=== PATIENT | female | born 1950 | race Caucasian/White ===

== ENCOUNTER → 2019-01-23 | Outpatient (CLI) | payer BC, MEDICARE ==
[~2019-01-23] MED LIST: ACETAMINOPHEN325 M1 PO; ALDACTONE50 MG PO; ASPIRIN EC325 M1 PO; BENADRYL PO; BENADRYL25 MG PO; BISOPROLOL FUMAR5 MG PO; CLARITIN10 MG PO; COLACE 100 MG100 MG PO; DILAUDID 2 MG TA2 MG PO; LIVALO2 MG PO; METAMUCIL1 EAC1 PO; MOM PO; ORACEA40 MG PO; RESTORIL30 MG PO; XARELTO10 M1 PO; ZANAFLEX4 M1 PO
== END ==
LOC: M.MRI 14:15
DX: S83.281A Other tear of lateral meniscus, current injury, right knee, initial encounter (principal); M17.11 Unilateral primary osteoarthritis, right knee; M25.461 Effusion, right knee; M71.21 Synovial cyst of popliteal space [Baker], right knee; X58.XXXA Exposure to other specified factors, initial encounter; Y93.89 Activity, other specified; Y92.89 Other specified places as the place of occurrence of the external cause; Y99.8 Other external cause status

== ENCOUNTER 2019-03-09 06:55 | Inpatient (IN) | payer BC, MEDICARE ==
[2019-02-26 09:09] LABS: ABSOLUTE BASOPHILS 0.1 thou/uL (0.0-0.2); ABSOLUTE EOSINOPHILS 0.2 thou/uL (0.0-0.7); ABSOLUTE LYMPHOCYTES 1.6 thou/uL (0.8-5.3); ABSOLUTE MONOCYTES 1.2 thou/uL (0.0-1.2); ABSOLUTE NEUTROPHILS 5.9 thou/uL (1.6-8.1); BASOPHILS 0.8 %; EOSINOPHILS 1.8 %; HEMATOCRIT 42.1 % (37.0-47.0); HEMOGLOBIN 14.4 gm/dL (12.0-15.0); LYMPHOCYTES 18.3 %; MCH 33.7 pg (26.0-34.0); MCHC 34.2 g/dL (28.0-37.0); MCV 98.5 fL (80.0-100.0); MONOCYTES 12.9 %; MPV 8.5 fl. (7.2-11.1); NUCLEATED RBCS 0 /100WBC; PLATELET COUNT* 253 thou/uL (150-400); POLYS 66.2 %; RBC 4.27 mil/uL (4.20-5.00); RDW-CV 12.7 % (10.5-14.5); WBC 8.9 thou/uL (4.0-11.0)
[2019-02-26 09:17] LABS: APTT 25.6 Seconds (25.0-31.3); PROTIME 10.4 Seconds (9.20-11.50)
[2019-02-26 09:23] LABS: ALBUMIN 4.2 g/dL (3.4-5.0); CALCIUM 9.3 mg/dL (8.5-10.1); CREATININE 1.2 mg/dL (0.6-1.3); POTASSIUM 4.8 mmol/L (3.5-5.1); TOTAL BILIRUBIN 0.4 mg/dL (<0.1-1.0); TOTAL PROTEIN 7.7 g/dL (6.4-8.2)
[2019-02-26 10:34] LABS: ESR (SEDRATE) 10 mm/hr (0-30)
--- NOTE | 2019-02-26 13:35 | EKG ---
[place] [address] ELECTROCARDIOGRAM REPORT Name: GOKUL VALDEZ Room: PRE IN [facility]#: [id number] Admission: Attend Phys: Faustino Mckee DO Discharge: Date of : 52 Report #: [id number] THIS REPORT FOR: //name// [facility] Test Date: 2019-02-26 Test Time: 09:21:20 Pat Name: GOKUL VALDEZ Department: Room: Gender: F Distance Education Director: : 1950 Requested By: Faustino Mckee Order Number: [id number] Reading MD: Juan C Avalos Measurements Intervals [place] Rate: 71 P: 63 NM: 187 QRS: 9 QRSD: 98 T: 53 QT: 368 QTc: 400 Interpretive Statements Sinus rhythm Compared to ECG 09/28/2013 10:39:51 ST (T wave) deviation no longer present Electronically Signed On 02-26-2019 13:35:04 CDT by Juan C Avalos [email or web address] <ELECTRONICALLY SIGNED> By: Juan C Avalos MD, [facility] 02/26/19 1335 0921 0 Juan C Avalos MD, FACC /EPI
[~2019-03-09] VITALS: Ht 165.1 cm; Wt 66.2 kg
[~2019-03-09 06:55] MED LIST changes: +CALCIUM 500 MG1 EAC2 PO; +ENBREL25 MG/0.5 SUBQ; +FOLIC ACID1 MG PO; +FOSAMAX 70 MG T70 MG PO; +HYDROXYCHLOROQ200 M1 PO; +IRON325 PO; +OTREXUP SUBQ; +PREDNISONE 1 MG1 M1 PO
[2019-03-09 11:20] VITALS: BP 124/67
[2019-03-09 16:30] VITALS: BP 125/52
[2019-03-09 20:30] VITALS: BP 132/54
[2019-03-10] VITALS (7 sets, daily range): BP systolic 91–126; BP diastolic 44–64
[2019-03-10 05:38] LABS: CALCIUM 8.4 mg/dL (8.5-10.1); CREATININE 1.2 mg/dL (0.6-1.3); POTASSIUM 4.8 mmol/L (3.5-5.1)
[2019-03-10 05:42] LABS: MCH 33.9 pg (26.0-34.0); MCHC 34.5 g/dL (28.0-37.0); MCV 98.5 fL (80.0-100.0); MPV 9.1 fl. (7.2-11.1); RBC 3.25 mil/uL (4.20-5.00); RDW-CV 12.8 % (10.5-14.5); WBC 14.9 thou/uL (4.0-11.0)
--- NOTE | 2019-03-10 12:49 | OP ---
[address] [address] OPERATIVE REPORT Name: GOKUL VALDEZ Room: [address] IN M.R.#: [id number] Admission: 03/09/19 Attend Phys: Kei Velázquez Discharge: Date of : 52 Report #: [id number] THIS REPORT FOR: //name// CC: Vanessa Abraham DICTATED BY: Grant Wood DO DATE OF SERVICE: 03/09/2019 ADDENDUM PREOPERATIVE DIAGNOSIS: Right elbow rheumatoid arthritis. POSTOPERATIVE DIAGNOSIS: Right elbow rheumatoid arthritis. OPERATION: Right elbow steroid injection. OPERATIVE INDICATIONS: The patient also has significant right elbow pain secondary to rheumatoid arthritis. We have discussed proceeding with a right elbow steroid injection for her today for pain relief. DESCRIPTION OF PROCEDURE: Once the patient was induced under general anesthesia, the right elbow was sterilely prepped with a chlorhexidine wipe. Kenalog 40 mg was injected from the posterior aspect of the elbow and this did flow freely into the joint. Band-Aid was applied. <ELECTRONICALLY SIGNED> By: Kg Delgado DO 03/10/19 1249 0626 [id number] Mckee DO /nt
--- NOTE | 2019-03-10 12:49 | OP ---
[facility] [address] [place] [address] OPERATIVE REPORT Name: GOKUL VALDEZ Room: [address] IN M.R.#: [id number] Admission: 03/09/19 Attend Phys: Kei Velázquez Discharge: Date of : 52 Report #: [id number] THIS REPORT FOR: //name// CC: Vanessa Abraham DICTATED BY: Grant Wood DO DATE OF SERVICE: 03/09/2019 PREOPERATIVE DIAGNOSIS: Right knee advanced degenerative joint disease. POSTOPERATIVE DIAGNOSIS: Right knee advanced degenerative joint disease. OPERATION PERFORMED: Right total knee arthroplasty. IMPLANTS UTILIZED: [employer] Journey II system with the following components: 1. A size 4 posterior stabilized Journey II Oxinium femoral component. 2. A size 3 Journey II tibial baseplate. 3. A size 29 mm oval patellar component. 4. A size 13 mm posterior stabilized articular insert and also 1 bag of Palacos bone cement. SURGEON: Faustino Mckee DO. MANUAL ARTS THERAPIST: Kelli Pollack PA-C and also Grant Wood DO. ESTIMATED BLOOD LOSS: 75 mL. ANESTHESIA: General plus local infiltration, a peripheral block was placed postoperatively as well. ANTIBIOTICS: 2 grams IV Ancef given preoperatively. DRAINS: None. SPECIMENS: None. COMPLICATIONS: None. CONDITION: Stable. DISPOSITION: PACU to Med/Surg floor. INDICATIONS FOR SURGERY: The patient is a pleasant 68-year-old female who is [facility] [address] [place] [address] OPERATIVE REPORT Name: JOSÉ MIGUELGOKUL ANN Room: [address] M.R.#: [id number] Admission: 03/09/19 Attend Phys: Kei Velázquez Discharge: Date of : 52 Report #: [id number] well known to the [facility] who had been following up regarding her longstanding right knee pain due to degenerative joint disease. X-rays did confirm severe arthritic changes and she had not been responding to conservative treatment over the last 1 year, consisting of anti-inflammatory medications, steroid injections and rest and activity modifications. Therefore, we did recommend right total knee arthroplasty. Risks, indications, and treatment alternatives were reviewed with the patient in great detail and she was in understanding of these and informed consent was signed. OPERATION IN DETAIL: The patient was identified in the preoperative holding area, where questions were answered. The right knee was marked and confirmed by the patient. She was transferred to the operating suite and placed on the operating table in the supine position, where general anesthesia was then induced. A well-padded tourniquet was placed on the right proximal thigh. This was inflated for a total of 46 minutes at 295 mmHg throughout the procedure. The right lower extremity was then sterilely prepped and draped in the usual fashion. A time-out was then performed to confirm that our safety checklist had been completed and everyone in the room was in agreement. A standard midline incision was then marked out and sharp dissection was carried down through the skin and subcutaneous tissue down to the level of capsule. A new blade was then used to make our standard medial parapatellar capsulotomy. The patella was then everted. The infrapatellar fat pad was excised as were the meniscal structures. The premade cutting blocks were then applied to the distal femur and were found to have good fit. This was pinned into position. The distal femur cut was then made through this premade guide. The appropriate size 4-in-1 cutting block was then pinned into position and the cuts were made sequentially and found to have excellent dimensions on the cut. Anterior cut was a nice smooth surface with the anterior cortex. There was also appropriate rotation with the premade cutting block. This was then removed as was the bony cut surfaces. The excess osteophytes from the femur were removed at this time and then take our attention to the proximal tibia where the premade cutting block was placed into position and was found to have a fit. This was pinned into position and the collateral ligaments as well as the patellar ligament were protected and the cut was made through the cutting block. The bony cut surface was then removed with electrocautery, freeing it from its soft tissue attachments. The remnant meniscal structures were then excised with electrocautery as well as the ACL and PCL. The preselected tibial baseplate trial was then pinned into position and confirmed to have appropriate rotation and slope with the drop chris. The trial femur was then placed followed by 10 mm articular insert. The knee was then reduced, taken through full range of motion and found to have laxity in both flexion and extension. Therefore, we did upsize to a size 12 mm spacer. This was found to have better stability. Attention was taken to the patella. There was significant wear. Therefore, we did proceed with resurfacing using the Biomet reaming system. Electrocautery was taken circumferentially around the patella. The reaming system was taken down to 14 mm thickness. This did leave us with a nice smooth surface. The patella was sized to 29 mm and the peg holes [address] [address] OPERATIVE REPORT Name: GOKUL VALDEZ Room: [address] ..#: [id number] Admission: 03/09/19 Attend Phys: Kei Velázquez Discharge: Date of : 52 Report #: [id number] were drilled through the guide. The trial patellar button was then placed and found to be tracking appropriately. Prior to this being done, the femur was prepared with its box cut through the guide. The excess bone had to be removed and followed by the application of the trial femur. Knee was taken through full range of motion again with the 12 mm insert and found to have good range of motion and good stability throughout. Therefore, the trial components were removed. The proximal tibia was prepared with the drill and punch and then the trial component was removed. The knee was thoroughly lavaged and the anesthetic cocktail was injected into the posterior capsule as well as the surrounding periosteum and the infrapatellar fat pad. The bone cement was mixed on the back table and applied to the back surface of the final components and the bony cut surfaces were well dried and bone cement was applied. The final components were then impacted into position beginning with the tibia component, followed by the femoral component and finally the patellar component. All the excess bone cement was then removed with a 12 mm insert was then inserted. There was slight laxity in both flexion and extension and a slightly recurvatum noted. Therefore, we did upsize to a size 13 mm spacer, which did correct the recurvatum and gave us excellent stability in both flexion and extension in the sagittal and coronal planes. Therefore, this was thrown for the final component and the trial component was replaced for the final component. The knee was finally taken through full range of motion and found to have excellent stability in both the sagittal and coronal planes. The knee was thoroughly irrigated. Vancomycin powder was sprinkled throughout. The knee was placed in 90 degrees of flexion. All the bone cement was allowed to completely harden. The layered closure was then began with a #1 Vicryl suture on the capsular layer. This was then reinforced with the #1 running Quill suture. The subcutaneous layer was then reapproximated with 2-0 Monocryl suture followed by a running subcuticular layer of 3-0 Stratafix suture. The skin glue was then applied. The sterile Mepilex bandage was then applied followed by thigh high PURNIMA hose. The patient appeared to tolerate the procedure well with no apparent complications and was transferred to the PACU in stable condition. Sponge and needle counts were correct x 2. <ELECTRONICALLY SIGNED> By: Kg Delgado DO 03/10/19 1249 1742 [id number] Mckee DO /salvador
[2019-03-10] MEDS ORDERED: ELIQUIS5 MG PO (15:16)
[2019-03-10] MEDS ORDERED: COLACE100 MG PO (15:18)
[2019-03-10] MEDS ORDERED: METAMUCIL PACK3.4 GM PO (15:30)
[2019-03-10] MEDS ORDERED: NORCO 5-325 TA1 EACH PO (15:33)
== END 2019-03-10 16:20 | disposition home or self-care (01) | DRG 470 ==
LOC: M.PRE 06:55 → M.TBA 11:00 → M.ORTHSURG 11:00 → M.PRE 12:15 → M.ORTHSURG 16:40
PROVIDERS: Orthopaedic Surgery; ADMIT Internal Medicine
PROC: 3E0233Z Introduction of Anti-inflammatory into Muscle, Percutaneous Approach (ICD-10-PCS; principal; 2019-03-09)
PROC: 0SRC0J9 Replacement of Right Knee Joint with Synthetic Substitute, Cemented, Open Approach (ICD-10-PCS; principal; 2019-03-09)
DX: M17.11 Unilateral primary osteoarthritis, right knee (principal); M06.821 Other specified rheumatoid arthritis, right elbow; Z96.642 Presence of left artificial hip joint; I10 Essential (primary) hypertension; Z88.1 Allergy status to other antibiotic agents; Z90.13 Acquired absence of bilateral breasts and nipples; Z90.722 Acquired absence of ovaries, bilateral; Z90.49 Acquired absence of other specified parts of digestive tract; Z91.041 Radiographic dye allergy status; Z88.2 Allergy status to sulfonamides; Z88.8 Allergy status to other drugs, medicaments and biological substances; Z91.048 Other nonmedicinal substance allergy status; Z79.899 Other long term (current) drug therapy; Z79.52 Long term (current) use of systemic steroids

== ENCOUNTER → 2019-08-19 | Outpatient (CLI) | payer OTHER, MEDICARE ==
[~2019-08-19] MED LIST changes: +COLACE100 MG PO; +ELIQUIS5 MG PO; +HUMIRA40 MG/0.8 SUBQ; +METAMUCIL PACK3.4 GM PO; +NORCO 5-325 TA1 EAC1 PO; +NORCO 5-325 TA1 EACH PO; +PERCOCET 5-3251 EACH PO; +ZOFRAN ODT4 MG PO
== END ==
LOC: M.CT 14:49
DX: M25.552 Pain in left hip (principal); M25.551 Pain in right hip

== ENCOUNTER 2019-08-30 17:16 | Emergency (ER) | payer OTHER, MEDICARE ==
[~2019-08-30] VITALS: Ht 165.1 cm; Wt 66.7 kg
[~2019-08-30 17:16] MED LIST changes: -HUMIRA40 MG/0.8 SUBQ; -NORCO 5-325 TA1 EAC1 PO; -PERCOCET 5-3251 EACH PO; -ZOFRAN ODT4 MG PO
[2019-08-30] MEDS ORDERED: PERCOCET 5-3251 EACH PO (18:44)
[2019-08-30] MEDS ORDERED: ZOFRAN ODT4 MG PO (18:44)
[2019-08-30 21:00] VITALS: BP 133/76
[2019-09-01] MEDS ORDERED: HUMIRA40 MG/0.8 SUBQ (11:20)
== END 2019-08-30 21:00 | disposition still patient (30) ==
LOC: M.ERS 17:16
DX: S52.122A Displaced fracture of head of left radius, initial encounter for closed fracture (principal); I10 Essential (primary) hypertension; M06.9 Rheumatoid arthritis, unspecified; Z90.49 Acquired absence of other specified parts of digestive tract; Z90.721 Acquired absence of ovaries, unilateral; Z90.13 Acquired absence of bilateral breasts and nipples; Z88.1 Allergy status to other antibiotic agents; Z88.2 Allergy status to sulfonamides; Z88.8 Allergy status to other drugs, medicaments and biological substances; W01.0XXA Fall on same level from slipping, tripping and stumbling without subsequent striking against object, initial encounter; Y92.003 Bedroom of unspecified non-institutional (private) residence as the place of occurrence of the external cause; Y93.89 Activity, other specified; Y99.8 Other external cause status

== ENCOUNTER → 2019-08-31 | Outpatient (CLI) | payer OTHER, MEDICARE ==
[~2019-08-31] MED LIST changes: +HUMIRA40 MG/0.8 SUBQ; +NORCO 5-325 TA1 EAC1 PO; +PERCOCET 5-3251 EACH PO; +ZOFRAN ODT4 MG PO
== END ==
LOC: M.CT 10:30
DX: S52.122A Displaced fracture of head of left radius, initial encounter for closed fracture (principal); X58.XXXA Exposure to other specified factors, initial encounter; Y93.89 Activity, other specified; Y92.89 Other specified places as the place of occurrence of the external cause; Y99.8 Other external cause status

== ENCOUNTER 2019-09-02 10:38 | Day surgery (SDC) | payer OTHER, MEDICARE ==
[~2019-09-02] VITALS: Ht 165.1 cm; Wt 66.7 kg
[~2019-09-02 10:38] MED LIST changes: -NORCO 5-325 TA1 EAC1 PO
[2019-09-02 11:07] LABS: HEMATOCRIT 38.2 % (37.0-47.0); HEMOGLOBIN 13.5 gm/dL (12.0-15.0); MCH 34.3 pg (26.0-34.0); MCHC 35.4 g/dL (28.0-37.0); MCV 96.9 fL (80.0-100.0); MPV 7.7 fl. (7.2-11.1); RBC 3.95 mil/uL (4.20-5.00); RDW-CV 12.6 % (10.5-14.5); WBC 10.1 thou/uL (4.0-11.0)
[2019-09-02 11:20] LABS: CALCIUM 9.5 mg/dL (8.5-10.1); CREATININE 1.1 mg/dL (0.6-1.3); POTASSIUM 4.3 mmol/L (3.5-5.1)
[2019-09-02 11:24] LABS: ALBUMIN 4.1 g/dL (3.4-5.0); TOTAL BILIRUBIN 0.9 mg/dL (<0.1-1.0); TOTAL PROTEIN 7.8 g/dL (6.4-8.2)
[2019-09-02] MEDS ORDERED: NORCO 5-325 TA1 EAC1 PO (14:44)
--- NOTE | 2019-09-04 11:25 | OP ---
[address] [address] OPERATIVE REPORT Name: GOKUL VALDEZ Room: [facility]..#: [id number] Admission: 09/02/19 Attend Phys: Kg Delgado DO Discharge: 09/02/19 Date of : 52 Report #: [id number] THIS REPORT FOR: //name// CC: Kg Phillip DATE OF SERVICE: 09/02/2019 PREOPERATIVE DIAGNOSIS: Radial head fracture dislocation of the left elbow. POSTOPERATIVE DIAGNOSIS: Radial head fracture dislocation of the left elbow. SURGERY PERFORMED: Left elbow arthrotomy with a radial head arthroplasty exploration for loose body. SURGEON: Kg Delgado DO [employer]IV[employer]INEERING PROJECT MANAGER: Dr. Mesa ANESTHESIA: General anesthetic. ANTIBIOTICS: The patient did receive Ancef 2 grams IV piggyback preoperatively. SPECIMENS: None. COMPLICATIONS: None DRAINS: None. ESTIMATED BLOOD LOSS: 10 mL. GROSS FINDINGS: Prior to surgery, this patient did demonstrate to actually show up in the Emergency Room and on the date of the visit, the patient came in on Thursday 08/30 with this injury. She had a fracture radial head piece that was somewhere very distal in the arm and even intraoperatively this fracture could not be found upon multiple explorations through the elbow joint itself. The patient's arm continued to have maintained full extension, flexion, pronation, supination with placement of the arthroplasty. The radial head fracture with rather significant correlated with the CT scan findings and the plain radiographs involving well over 50% of the head. The patient demonstrated a stable arc of motion post-arthroplasty. SURGERY IN DETAIL: This patient was taken to the operating room and placed on table, given the benefit of general anesthetic, she had a well-padded tourniquet placed high on her left arm, but was not needed during surgery. She underwent a chlorhexidine prep and sterile draping for left arm surgery[place] [address] OPERATIVE REPORT Name: GOKUL VALDEZ Room: [facility].#: [id number] Admission: 09/02/19 Attend Phys: Kg Delgado DO Discharge: 09/02/19 Date of : 52 Report #: [id number] and verified by everyone in the room for the left elbow surgery. Surgery began with a curvilinear incision from the epicondyle laterally over the radial head and neck region with a 10 blade scalpel through skin and subcutaneous tissues. Extensor mechanism now was identified and at this point in time directly from the epicondyle extending to the radial head and neck region the arthrotomy was made across the hemarthrosis was evacuated. We did go ahead and explore the radial head fracture, noting it to be rather large in nature that we did not want to risk that this would become continued unstable fracture dislocation pattern, so we elected at this stage to progress to an arthroplasty technique. The patient did undergo an oscillating saw to remove the radial head. This was sized to a 22 appropriately. Surgery now continued as well with irrigating the joint proper several times reexploring this multiple times again prior to the arthroplasty looking for the loose body, which could not be found. Surgery continued broaching for radial canal to 6.5 and we elected to put a standard 6.5, 22 mm head stem prosthesis in the joint. The trial worked great and so we elected to put the real one in next. The real prosthesis was tamped into the radial canal easily. X-rays were taken demonstrating verifying the position verifying the stability, pronation, supination, flexion and extension and now the capsule was closed with #1 Vicryl in [id number] fashion. The extensor mechanism was closed with the same #1 Vicryl [id number] fashion, subcutaneous tissues, 2-0 Monocryl with running 3-0 nylon to the skin. Xeroform, 4 x 4s, Kerlix, soft roll well-padded posterior splint dressing was applied, transferred off the table, taken to recovery in stable condition. I attest I was present for all critical aspects of surgery. Needle, instrument, sponge counts correct. <ELECTRONICALLY SIGNED> By: Kg Delgado DO 09/04/19 1125 1331 [id number] Delgado DO /nt
== END 2019-09-02 13:36 | disposition home or self-care (01) ==
LOC: M.PRE 10:38 → M.TBA 10:38 → M.SUR 10:38 → M.PRE 12:50 → M.SUR 13:36 → M.PRE 14:06
PROVIDERS: Orthopaedic Surgery
DX: S52.122A Displaced fracture of head of left radius, initial encounter for closed fracture (principal); M25.522 Pain in left elbow; Z89.511 Acquired absence of right leg below knee; Z89.512 Acquired absence of left leg below knee; Z90.710 Acquired absence of both cervix and uterus; Z90.49 Acquired absence of other specified parts of digestive tract; Z98.890 Other specified postprocedural states; Z79.899 Other long term (current) drug therapy; Z88.2 Allergy status to sulfonamides; Z88.8 Allergy status to other drugs, medicaments and biological substances; W19.XXXA Unspecified fall, initial encounter; Y93.89 Activity, other specified; Y92.89 Other specified places as the place of occurrence of the external cause; Y99.8 Other external cause status